=== PATIENT | male | born 1965 | race Caucasian/White ===

== ENCOUNTER 2025-02-13 23:30 | Emergency (ER) | payer BC, OTHER ==
[~2025-02-13] VITALS: Ht 180.3 cm; Wt 109.8 kg
[2025-02-13 23:38] VITALS: BP 161/85
[2025-02-14] MEDS ORDERED: HYDR-3980 PO ×2 (00:13→00:15)
[2025-02-14] MEDS ORDERED: HYDROCODONE/APAP 5-325MG TABLET ONE (00:50)
[2025-02-14] MEDS ORDERED: DEXAMETHASONE SOD PHOSPHATE 4 MG INJ ONE (00:50)
[2025-02-14] MEDS: HYDROCODONE/APAP 5-325MG TABLET PO ONE (00:55)
[2025-02-14] MEDS: DEXAMETHASONE SOD PHOSPHATE 4 MG INJ IM ONE (00:55)
[2025-02-14 01:34] VITALS: BP 148/80; O2SAT 96
== END 2025-02-14 01:35 | disposition home or self-care (01) ==
LOC: ER 23:35
DX: M54.50 Low back pain, unspecified (principal); M54.2 Cervicalgia; G89.29 Other chronic pain; F12.90 Cannabis use, unspecified, uncomplicated; E11.9 Type 2 diabetes mellitus without complications; I51.9 Heart disease, unspecified; E78.5 Hyperlipidemia, unspecified; Z79.84 Long term (current) use of oral hypoglycemic drugs
CPT/HCPCS: 99283; 96372; J1100; A4606; A4663